=== PATIENT | male | born 1970 | race Hispanic/Latino ===

== ENCOUNTER 2016-11-02 10:24 | Emergency (ER) | payer OTHER ==
[~2016-11-02] VITALS: Ht 167.6 cm; Wt 75.0 kg
[~2016-11-02 10:24] MED LIST: ACET-171 PO; OXYC5TAB72 PO
[2016-11-02 10:28] VITALS: BP 143/87; PULSE 101; RESP 22; O2SAT 98
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
[2016-11-02] MEDS ORDERED: 0.9% Sodium Chloride 1,000 ML IV ONE (10:52)
[2016-11-02] MEDS ORDERED: HYDROmorphone 1 mg/mL Inj IVPUSH PRN (10:55)
[2016-11-02] MEDS ORDERED: Ondansetron 2 mg/mL 2 mL Inj IVPUSH PRN (10:55)
[2016-11-02] MEDS ORDERED: Pantoprazole 4 mg/mL 10 mL Inj IVPUSH ONE (10:55)
[2016-11-02] MEDS ORDERED: Acetaminophen IV 1,000 MG in IV Premix 1 EACH IV ONE (11:10)
[2016-11-02 11:16] LABS: BASOPHILS % (AUTO) 1.2 % (0-3); EOSINOPHILS % (AUTO) 8.3 % (0-5); MONOCYTES % (AUTO) 10.6 % (4-12); Mean Corpuscular Hemoglobin 33.3 pg (27.0-35.0); Mean Corpuscular Volume 93.3 fL (81-100); NEUTROPHILS % (AUTO) 48.8 % (40-74); Platelet Count 168 bil/L (150-400)
--- NOTE | 2016-11-02 11:28 | DRSVH ---
PROCEDURE: X-RAY ACUTE ABDOMINAL SERIES ([id number]) INDICATIONS: abdominal pain TECHNIQUE: One view chest and two views of the abdomen were acquired. COMPARISON: None. FINDINGS: Surgical changes and devices: There are surgical clips in the gallbladder fossa. Chest: Lungs are clear. Heart size is normal. No pleural effusions. No pneumoperitoneum. Abdomen: Bowel gas pattern is overall normal. There is a large amount of stool in the colon. No west picious calcifications. Visualized solid organ contours appear normal. Bones: No suspicious bony lesions. IMPRESSION: No acute cardiopulmonary findings. No acute intra-abdominal findings. Large colonic stool burden. Dictated by: Molly Yancey M.D. on 11/02/2016 at 11:23 Approved by: Molly Yancey M.D. on 11/02/2016 at 11:27
[2016-11-02 13:37] LABS: APPEARANCE,URINE CLEAR (CLEAR,HAZY); COLOR,URINE YELLOW (YELLOW)
[2016-11-02 13:38] LABS: OCCULT BLOOD,URINE NEGATIVE (NEGATIVE); UROBILINOGEN,URINE NORMAL (NORMAL)
[2016-11-02 14:13] VITALS: BP 125/78; PULSE 80; RESP 16; O2SAT 96
[2016-11-02] MEDS ORDERED: PEG4000S2 PO (14:53)
[2016-11-02] MEDS ORDERED: OXYC1TAB24 PO (14:53)
[2016-11-02] MEDS ORDERED: HYOS0.1281 SL (14:53)
[2016-11-02] MEDS ORDERED: oxyCODONE-Acetamin 5-325 mg Tablet PO ONE (15:25)
[2016-11-02 15:31] VITALS: BP 122/89; PULSE 84; RESP 16; O2SAT 98
== END 2016-11-02 15:32 | disposition home or self-care (01) ==
LOC: SED 10:24
DX: R10.9 Unspecified abdominal pain (principal); R11.2 Nausea with vomiting, unspecified; R30.0 Dysuria; R05 Cough; R09.81 Nasal congestion; E11.9 Type 2 diabetes mellitus without complications; I25.2 Old myocardial infarction; J45.909 Unspecified asthma, uncomplicated; Z98.890 Other specified postprocedural states; Z86.73 Personal history of transient ischemic attack (TIA), and cerebral infarction without residual deficits; Z87.891 Personal history of nicotine dependence; Z88.0 Allergy status to penicillin
CPT/HCPCS: 36415; 74022; 80053; 81000; 83605; 83690; 83735; 85025; 96361; 96374; 96375; 99285; J0131; J1170; J2060; J2405; J7030

== ENCOUNTER 2016-11-06 15:17 | Emergency (ER) | payer OTHER ==
[~2016-11-06] VITALS: Ht 167.6 cm; Wt 75.0 kg
[~2016-11-06 15:17] MED LIST changes: +HYOS0.1281 SL; +OXYC1TAB24 PO; +PEG4000S2 PO
[2016-11-06 15:35] VITALS: BP 127/85; PULSE 100; RESP 20; O2SAT 97
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
[2016-11-06 17:00] LABS: BASOPHILS % (AUTO) 0.8 % (0-3); EOSINOPHILS % (AUTO) 7.9 % (0-5); MONOCYTES % (AUTO) 12.4 % (4-12); Mean Corpuscular Hemoglobin 33.3 pg (27.0-35.0); Mean Corpuscular Volume 93.3 fL (81-100); NEUTROPHILS % (AUTO) 48.5 % (40-74); Platelet Count 183 bil/L (150-400)
[2016-11-06] MEDS ORDERED: 0.9% Sodium Chloride 1,000 ML IV ONE (17:05)
[2016-11-06] MEDS: HYDROmorphone 1 mg/mL Inj IVPUSH PRN ×2 (17:29→20:25)
[2016-11-06] MEDS: Ondansetron 2 mg/mL 2 mL Inj IVPUSH PRN ×2 (17:29→23:11)
[2016-11-06 17:31] LABS: Magnesium 2.1 mg/dL (1.6-2.6)
--- NOTE | 2016-11-06 19:13 | DRSVH ---
PROCEDURE: CT ABDOMEN AND PELVIS WITH CONTRAST ([id number]) INDICATIONS: abd pain- diffuse R>L TECHNIQUE: After the administration of intravenous contrast, 5 mm thick sections acquired from the diaphragm to the symphysis. 5 mm coronal and sagittal reformats were acquired. For radiation dose reduction, the following was used: automated exposure control, adjustment of mA and/or kV according to patient siz e. COMPARISON: None. FINDINGS: Image quality: Excellent. ABDOMEN: Lung bases: There is suggestion of a minimal right infero-medial infiltrate in the lung. Heart size i s normal. Solid organs: The liver is somewhat nodular on its surface although normal in size. Spleen is normal in size and position.. Gallbladder is not to have been removed. Vascular clips are present.. Biliar y system is non dilated. Pancreas enhances normally. No adrenal nodules. Kidneys demonstrate lizzette l size and enhancement, without hydronephrosis. Peritoneum and bowel: Bowel loops demonstrate normal wall thickness and caliber. There is a small to moderate ascites present. The appendix is thought to be within normal limits although there is a sma ll appendicolith at the apex of the appendix. Nodes and vessels: No retroperitoneal or mesenteric adenopathy by size criteria. Aorta and inferior vena cava are normal in size. Miscellaneous: No ventral hernias. PELVIS: Genitourinary: Bladder wall thickness is normal. Miscellaneous: No inguinal hernias or adenopathy. Bones: No suspicious bony lesions. No vertebral body compression fractures. IMPRESSION: Changes of cirrhosis in the liver. Previous recent cholecystectomy. Small to moderate amount of ascites which is new since the CT KUB of 10/08/16. Bowel gas pattern is considered normal. Appendix is considered normal with a small appendicolith at i ts apex. There is a small pneumonia or infiltrate at the right lung base. Dictated by: Antony King M.D. on 11/06/2016 at 19:01 Approved by: Antony King M.D. on 11/06/2016 at 19:12
[2016-11-06 19:56] VITALS: BP 131/71; PULSE 80; RESP 18; O2SAT 97
[2016-11-06] MEDS ORDERED: _oxyCODONE/APAP 5-325 mg Tablet PO PRN (22:20)
[2016-11-06] MEDS ORDERED: Promethazine Inj 25 MG in Dextrose 5%-Pha MIX 50 ML IV ONE (22:55)
[2016-11-06] MEDS ORDERED: Haloperidol 5 mg/mL Inj IVPUSH ONE (23:35)
[2016-11-06 23:45] VITALS: BP 119/59; PULSE 94; RESP 17; O2SAT 95
[2016-11-07] MEDS ORDERED: PROM25SU47 RECTAL (00:41)
[2016-11-07] MEDS ORDERED: OXYC-407 PO (00:41)
[2016-11-07 00:50] VITALS: BP 109/68; PULSE 81; RESP 16; O2SAT 100
--- NOTE | 2016-11-07 08:40 | DRSVH ---
PROCEDURE: US ABDOMEN, LIMITED ([id number]) INDICATIONS: ascites and abdominal pain TECHNIQUE: Real-time focused scanning was performed of the abdomen, with image documentation. COMPARISON: [facility], CT, CT ABD PELVIS W CON, 11/06/2016, 18:04. FINDINGS: Small amount of intraperitoneal fluid is present. Paracentesis was attempted by Dr. King which was not successful. IMPRESSION: Small amount of ascites is present and attempted paracentesis by Dr. King was not succes sful. Dictated by: Josue Barcenas [facility] Interpreted: Khushbu Ward MD on 11/07/2016 at 8:38 Transcribed by: TERRI on 11/07/2016 at 8:39 Approved by: Khushbu Ward MD, PhD on 11/07/2016 at 16:43
== END 2016-11-07 00:51 | disposition home or self-care (01) ==
LOC: SED 15:17
DX: R10.9 Unspecified abdominal pain (principal); R11.2 Nausea with vomiting, unspecified; R50.9 Fever, unspecified; E11.9 Type 2 diabetes mellitus without complications; F12.90 Cannabis use, unspecified, uncomplicated; F31.9 Bipolar disorder, unspecified; J45.909 Unspecified asthma, uncomplicated; B19.20 Unspecified viral hepatitis C without hepatic coma; R18.8 Other ascites; Z90.49 Acquired absence of other specified parts of digestive tract; Z87.891 Personal history of nicotine dependence; Z88.0 Allergy status to penicillin
CPT/HCPCS: 36415; 74177; 76705; 80053; 83690; 83735; 85025; 96361; 96374; 96375; 96376; 99285; J1170; J1200; J1630; J2060; J2405; J7030; Q9967

== ENCOUNTER 2016-11-10 17:50 | Emergency (ER) | payer OTHER ==
[~2016-11-10] VITALS: Ht 167.6 cm; Wt 75.0 kg
[~2016-11-10 17:50] MED LIST changes: +OXYC-407 PO; +PROM25SU47 RECTAL
[2016-11-10 17:54] VITALS: BP 132/85; PULSE 82; RESP 22; O2SAT 97
[2016-11-10] MEDS ORDERED: oxyCODONE-Acetamin 10-325 mg Tablet PO ONE (18:55)
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
--- NOTE | 2016-11-10 19:34 | DRSVH ---
PROCEDURE: X-RAY CHEST, TWO VIEWS ([id number]) INDICATIONS: cough, fever TECHNIQUE: 2 views of the chest were acquired. COMPARISON: [facility], RG, CHEST 1VW (PORTABLE), 05/28[facility]2006[facility], 10/08/2016, 20:51. [facility], CR, CHEST 2VW, 03/08/2011, 21:04. [facility], CT, CT ABD PELVIS W CON, 11/06/2016, 18:04. FINDINGS: Surgical changes and devices: None. Lungs and pleura: There is right hemidiaphragm elevation. Right medial basilar opacity may be infilt rate or atelectasis. No pleural effusions or pneumothorax. Mediastinum: Mediastinal contours are normal. Heart size is normal. Bones and chest wall: No suspicious bony abnormalities. Soft tissues appear unremarkable. IMPRESSION: Right hemidiaphragm elevation. Right medial basilar opacity may be infiltrate or atelecta sis. Dictated by: Leopoldo Berry M.D. on 11/10/2016 at 19:29 Approved by: Leopoldo Berry M.D. on 11/10/2016 at 19:32
[2016-11-10 19:36] LABS: BASOPHILS % (AUTO) 0.6 % (0-3); EOSINOPHILS % (AUTO) 9.4 % (0-5); MONOCYTES % (AUTO) 10.8 % (4-12); Mean Corpuscular Hemoglobin 33.4 pg (27.0-35.0); Mean Corpuscular Volume 92.8 fL (81-100); NEUTROPHILS % (AUTO) 46.9 % (40-74); Platelet Count 226 bil/L (150-400)
[2016-11-10 19:40] VITALS: BP 128/84; PULSE 80; RESP 20; O2SAT 98
[2016-11-10] MEDS ORDERED: levoFLOXacin 500 mg Tablet PO ONE (19:50)
[2016-11-10] MEDS ORDERED: levoFLOXacin 250 mg Tablet PO ONE (20:25)
[2016-11-10] MEDS ORDERED: _oxyCODONE/APAP 5-325 mg Tablet PO PRN (21:05)
[2016-11-11 01:46] VITALS: BP 130/74; PULSE 84; RESP 18; O2SAT 99
== END 2016-11-11 07:06 | disposition home or self-care (01) ==
LOC: SED 17:50
DX: J18.9 Pneumonia, unspecified organism (principal); R51 Headache; G47.30 Sleep apnea, unspecified; J45.909 Unspecified asthma, uncomplicated; E11.9 Type 2 diabetes mellitus without complications; F31.9 Bipolar disorder, unspecified; Z87.891 Personal history of nicotine dependence; Z88.0 Allergy status to penicillin; Z91.018 Allergy to other foods

== ENCOUNTER 2016-11-23 21:12 | Emergency (ER) | payer OTHER ==
[~2016-11-23] VITALS: Ht 167.6 cm; Wt 121.4 kg
[2016-11-23 21:20] VITALS: BP 142/81; PULSE 96; RESP 18; O2SAT 98
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
[2016-11-23] MEDS ORDERED: 0.9% Sodium Chloride 1,000 ML IV ONE (21:53)
[2016-11-23] MEDS ORDERED: Ondansetron 2 mg/mL 2 mL Inj IVPUSH ONE (21:55)
[2016-11-23] MEDS ORDERED: HYDROmorphone 0.5 mg/0.5 mL iSecure Syringe IVPUSH ONE (22:25)
[2016-11-23 22:28] LABS: BASOPHILS % (AUTO) 0.7 % (0-3); EOSINOPHILS % (AUTO) 12.4 % (0-5); MONOCYTES % (AUTO) 9.9 % (4-12); Mean Corpuscular Hemoglobin 33.6 pg (27.0-35.0); Mean Corpuscular Volume 95.7 fL (81-100); NEUTROPHILS % (AUTO) 46.1 % (40-74); Platelet Count 156 bil/L (150-400)
[2016-11-23 22:45] LABS: Magnesium 1.9 mg/dL (1.6-2.6)
[2016-11-24 00:02] LABS: APPEARANCE,URINE CLEAR (CLEAR,HAZY); COLOR,URINE DARK YELLOW (YELLOW); OCCULT BLOOD,URINE NEGATIVE (NEGATIVE); UROBILINOGEN,URINE NORMAL (NORMAL)
[2016-11-24] MEDS ORDERED: HYOS0.1217 PO (00:14)
[2016-11-24 00:29] VITALS: BP 138/82; PULSE 98; RESP 18; O2SAT 97
--- NOTE | 2016-11-24 08:33 | DRSVH ---
PROCEDURE: CT KUB ([id number]) INDICATIONS: left testicle and flank pain TECHNIQUE: Noncontrast 5 mm thick sections acquired from the diaphragms to the symphysis. 5 mm thick coronal an d sagittal reformats were then performed. For radiation dose reduction, the following was used: aut omated exposure control, adjustment of mA and/or kV according to patient size. COMPARISON: [facility], CT, CT KUB, 10/08/2016, 20:51. FINDINGS: Image quality: Excellent. Lung bases: Mild right basilar infiltrate or atelectasis. Heart size is normal. Urinary system: Both kidneys are normal in size. No kidney stones. No hydronephrosis or perinephri c fat stranding. Both ureters appear non-dilated throughout their expected courses. Bladder wall th ickness is normal; no calcified bladder stones. Other solid organs: Fever has a nodular contour consistent with cirrhosis. Spleen is not enlarged me asuring 14 cm. Gallbladder is surgically absent. Pancreas is normal in contours. No adrenal nodules . Peritoneum and bowel: Unenhanced bowel loops demonstrate normal wall thickness and caliber. A small amount of free fluid is present. No free air. Nodes and vessels: No retroperitoneal or mesenteric adenopathy by size criteria. Aorta and inferior vena cava are normal in caliber. Abdominal wall: No ventral hernias. Pelvis: There is a small amount of free pelvic fluid. No inguinal adenopathy. A 2 cm round, masslik e density is noted in the left inguinal canal with CT attenuation of 14 HU. There is hydrocele in scr otum. Bones: No suspicious bony lesions. No vertebral body compression fractures. IMPRESSION: 1. No definitive CT findings to explain left testicular pain/flank pain. 2. A 2 cm rounded masslike density in the left inguinal canal with CT attenuation suggesting a cyst. Ultrasound may be helpful for further evaluation. 3. Cirrhotic liver. 4. Mild splenomegaly suggesting portal hypertension. 5. A small amount of ascites. 6. Hydroceles in scrotum. 7. Mild right basilar infiltrate or atelectasis. No significant discrepancy with the third shift lieutenant radiology preliminary report. Dictated by: Leopoldo Berry M.D. on 11/24/2016 at 7:53 Approved by: Leopoldo Berry M.D. on 11/24/2016 at 8:31
== END 2016-11-24 00:31 | disposition home or self-care (01) ==
LOC: SED 21:12
DX: R10.9 Unspecified abdominal pain (principal); N50.812 Left testicular pain; J45.909 Unspecified asthma, uncomplicated; E11.9 Type 2 diabetes mellitus without complications; Z87.891 Personal history of nicotine dependence; Z88.6 Allergy status to analgesic agent; Z88.5 Allergy status to narcotic agent; Z88.0 Allergy status to penicillin
CPT/HCPCS: 36415; 74176; 80053; 81000; 83690; 83735; 85025; 96361; 96374; 96375; 99285; J1170; J2405; J7030

== ENCOUNTER 2016-11-27 12:15 | Emergency (ER) | payer OTHER ==
[~2016-11-27] VITALS: Ht 167.6 cm; Wt 75.9 kg
[~2016-11-27 12:15] MED LIST changes: +HYOS0.1217 PO
[2016-11-27 12:17] VITALS: BP 145/91; PULSE 95; RESP 18; O2SAT 98
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
[2016-11-27 13:10] LABS: BASOPHILS % (AUTO) 0.5 % (0-3); EOSINOPHILS % (AUTO) 6.4 % (0-5); MONOCYTES % (AUTO) 9.8 % (4-12); Mean Corpuscular Hemoglobin 33.3 pg (27.0-35.0); Mean Corpuscular Volume 94.5 fL (81-100); NEUTROPHILS % (AUTO) 50.3 % (40-74); Platelet Count 153 bil/L (150-400)
[2016-11-27 14:37] VITALS: BP 152/77; PULSE 111; RESP 22; O2SAT 97
--- NOTE | 2016-11-27 14:55 | DRSVH ---
PROCEDURE: US HERNIA INGUINAL INDICATIONS: eval for incarcerated inguinal hernia TECHNIQUE: Real-time focused scanning was performed of the inguinal region, with image documentation. COMPARISON: [facility], [place], 11/06/2016, 21:57. FINDINGS: No definite hernia is visualized sonographically. There is a avascular simple cyst within the left temporal condyle corresponding to the palpable abnormality measuring 2.1 x 3.5 cm. IMPRESSION: Avascular, simple cystic structure within the left inguinal canal measuring up to 3.5 cm of unclear etiology. If indicated CT could be performed for further assessment as no definite hernia tion of fat or bowel is seen by ultrasound. Dr. Low given results at 1430 hrs. 11/27/2016. Dictated by: Josue NORIEGA Interpreted: Lise Schmid MD on 11/27/2016 at 14:53 Transcribed by: JESSE on 11/27/2016 at 14:54 Approved by: Lise Schmid M.D. on 11/28/2016 at 16:17
[2016-11-27] MEDS ORDERED: OXYC-474 PO (15:22)
[2016-11-27 15:26] VITALS: BP 152/77; PULSE 91; RESP 20; O2SAT 98
== END 2016-11-27 15:23 | disposition home or self-care (01) ==
LOC: SED 12:15
DX: R10.32 Left lower quadrant pain (principal); E11.9 Type 2 diabetes mellitus without complications; J45.909 Unspecified asthma, uncomplicated; Z87.891 Personal history of nicotine dependence; Z88.6 Allergy status to analgesic agent; Z88.5 Allergy status to narcotic agent; Z88.0 Allergy status to penicillin

== ENCOUNTER 2016-12-09 15:58 | Emergency (ER) | payer OTHER ==
[~2016-12-09] VITALS: Ht 167.6 cm; Wt 75.9 kg
[~2016-12-09 15:58] MED LIST changes: +OXYC-474 PO
[2016-12-09 16:13] VITALS: BP 140/96; PULSE 82; RESP 16; O2SAT 97
[2016-12-09 17:55] LABS: BASOPHILS % (AUTO) 0.6 % (0-3); EOSINOPHILS % (AUTO) 4.4 % (0-5); MONOCYTES % (AUTO) 10.4 % (4-12); Mean Corpuscular Hemoglobin 33.6 pg (27.0-35.0); Mean Corpuscular Volume 94.1 fL (81-100); NEUTROPHILS % (AUTO) 50.5 % (40-74); Platelet Count 163 bil/L (150-400)
[2016-12-09 18:15] LABS: Magnesium 2.1 mg/dL (1.6-2.6)
[2016-12-09] MEDS ORDERED: Ondansetron 2 mg/mL 2 mL Inj ONE (19:01)
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
[2016-12-09] MEDS ORDERED: HYDROmorphone 1 mg/mL Inj IVPUSH PRN (19:35)
--- NOTE | 2016-12-09 20:16 | DRSVH ---
PROCEDURE: CT ABDOMEN AND PELVIS WITH CONTRAST ([id number]) INDICATIONS: bilat tender inguinal hernia TECHNIQUE: After the administration of intravenous contrast, 5 mm thick sections acquired from the diaphragm to the symphysis. 5 mm coronal and sagittal reformats were acquired. For radiation dose reduction, the following was used: automated exposure control, adjustment of mA and/or kV according to patient siz e. COMPARISON: None. FINDINGS: Image quality: Excellent. ABDOMEN: Lung bases: Mild atelectasis is present at the medial right lung base. No pleural effusion or pneumot horax. Solid organs: Liver demonstrates diffuse surface nodularity consistent with cirrhotic transformation. The portal vein is patent. The spleen measures 14.5 cm in length. There is a small amount of hepatos plenic free fluid. Gallbladder is surgically absent. Biliary system is non dilated. Pancreas enhanc es normally. No adrenal nodules. Kidneys demonstrate normal size and enhancement, without hydroneph rosis. Peritoneum and bowel: Bowel loops demonstrate normal wall thickness and caliber. The appendix is th in walled and gas filled. There is a large amount of low-density free fluid within the pelvis. Nodes and vessels: No retroperitoneal or mesenteric adenopathy by size criteria. Aorta and inferior vena cava are normal in size. Miscellaneous: No ventral hernias. PELVIS: Genitourinary: Bladder wall thickness is normal. Miscellaneous: No inguinal adenopathy. Small bilateral fat and fluid containing inguinal hernias. Bones: No suspicious bony lesions. No vertebral body compression fractures. IMPRESSION: 1. No acute intra-abdominal findings. Normal appendix. 2. Hepatic cirrhosis with stigmata of portal hypertension including splenomegaly and ascites. 3. Small bilateral fat fluid containing inguinal hernias. No findings to suggest bowel herniation. Dictated by: Molly Yancey M.D. on 12/09/2016 at 19:59 Approved by: Molly Yancey M.D. on 12/09/2016 at 20:14
[2016-12-09] MEDS ORDERED: OMEP20CA11 PO (21:56)
[2016-12-09] MEDS ORDERED: DOCU-41 PO (21:56)
[2016-12-09] MEDS ORDERED: ONDA8TAB10 PO (21:57)
[2016-12-09] MEDS ORDERED: ALBU8.5H2 INHALATION (21:58)
[2016-12-09] MEDS ORDERED: oxyCODONE-Acetamin 5-325 mg Tablet PO ONE (22:00)
[2016-12-09] MEDS ORDERED: OXYC1TAB24 PO (22:01)
[2016-12-09 22:14] VITALS: BP 148/89; PULSE 80; RESP 16; O2SAT 98
[2016-12-09 22:17] VITALS: BP 148/89; PULSE 80; RESP 16; O2SAT 98
== END 2016-12-09 22:19 | disposition home or self-care (01) ==
LOC: SED 15:58
DX: K40.20 Bilateral inguinal hernia, without obstruction or gangrene, not specified as recurrent (principal); K74.60 Unspecified cirrhosis of liver; F15.10 Other stimulant abuse, uncomplicated; J45.909 Unspecified asthma, uncomplicated; E11.9 Type 2 diabetes mellitus without complications; F31.9 Bipolar disorder, unspecified; Z87.828 Personal history of other (healed) physical injury and trauma; Z87.891 Personal history of nicotine dependence; Z88.0 Allergy status to penicillin; Z88.5 Allergy status to narcotic agent; Z91.018 Allergy to other foods
CPT/HCPCS: 36415; 74177; 80053; 81002; 82948; 83690; 83735; 85025; 96374; 96375; 99285; J1170; J2405; Q9967

== ENCOUNTER 2016-12-14 17:39 | Emergency (ER) | payer OTHER ==
[~2016-12-14] VITALS: Ht 167.6 cm; Wt 75.9 kg
[~2016-12-14 17:39] MED LIST changes: +ALBU8.5H2 INHALATION; +DOCU-41 PO; +OMEP20CA11 PO; +ONDA8TAB10 PO
[2016-12-14 17:59] VITALS: BP 115/73; PULSE 74; RESP 16; O2SAT 98
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
== END 2016-12-14 18:51 | disposition home or self-care (01) ==
LOC: SED 17:39
DX: K40.21 Bilateral inguinal hernia, without obstruction or gangrene, recurrent (principal); E11.9 Type 2 diabetes mellitus without complications; J45.909 Unspecified asthma, uncomplicated; Z87.891 Personal history of nicotine dependence; Z88.0 Allergy status to penicillin; Z88.5 Allergy status to narcotic agent; Z88.6 Allergy status to analgesic agent; Z91.018 Allergy to other foods

== ENCOUNTER 2017-01-01 13:23 | Emergency (ER) | payer OTHER ==
[~2017-01-01] VITALS: Ht 167.6 cm; Wt 75.9 kg
[2017-01-01 13:36] VITALS: BP 156/92; PULSE 93; RESP 18; O2SAT 99
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
[2017-01-01 15:41] VITALS: BP 156/92; PULSE 93; RESP 18; O2SAT 99
== END 2017-01-01 15:42 | disposition home or self-care (01) ==
LOC: SED 13:23
DX: G89.4 Chronic pain syndrome (principal); J45.909 Unspecified asthma, uncomplicated; E11.9 Type 2 diabetes mellitus without complications; Z87.828 Personal history of other (healed) physical injury and trauma; Z87.891 Personal history of nicotine dependence; Z88.5 Allergy status to narcotic agent; Z88.6 Allergy status to analgesic agent; Z88.0 Allergy status to penicillin; Z91.018 Allergy to other foods

== ENCOUNTER 2017-01-13 14:51 | Emergency (ER) | payer OTHER ==
[~2017-01-13] VITALS: Ht 167.6 cm; Wt 75.9 kg
[2017-01-13] MEDS ORDERED: MethylprednisoLONE Sodium Succinate 62.5 mg/mL 2 mL Inj ONE (14:52)
[2017-01-13 14:55] VITALS: BP 116/75; PULSE 98; RESP 22; O2SAT 98
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
[2017-01-13] MEDS ORDERED: 0.9% Sodium Chloride 1,000 ML IV ONE (15:05)
[2017-01-13] MEDS ORDERED: MethylprednisoLONE Sodium Succinate 62.5 mg/mL 2 mL Inj IVPUSH ONE (15:05)
[2017-01-13] MEDS ORDERED: Famotidine 10 mg/mL 2 mL Inj IVPUSH ONE (15:05)
[2017-01-13 16:10] VITALS: BP 114/76; PULSE 74; RESP 26; O2SAT 96
[2017-01-13] MEDS ORDERED: PRE20 PO (16:39)
[2017-01-13] MEDS ORDERED: CETI10CA PO (16:39)
[2017-01-13 18:57] VITALS: BP 114/62; PULSE 69; RESP 29; O2SAT 96
== END 2017-01-13 18:30 | disposition home or self-care (01) ==
LOC: SED 14:51
DX: T78.1XXA Other adverse food reactions, not elsewhere classified, initial encounter (principal); Y93.89 Activity, other specified; Y92.89 Other specified places as the place of occurrence of the external cause; Y99.8 Other external cause status; E11.9 Type 2 diabetes mellitus without complications; J45.909 Unspecified asthma, uncomplicated; F31.9 Bipolar disorder, unspecified; Z87.891 Personal history of nicotine dependence; Z88.0 Allergy status to penicillin; Z88.5 Allergy status to narcotic agent; Z88.8 Allergy status to other drugs, medicaments and biological substances; Z91.02 Food additives allergy status
CPT/HCPCS: 93005; 96361; 96374; 96375; 99284; J1200; J2930; J7030

== ENCOUNTER 2017-02-28 12:20 | Emergency (ER) | payer OTHER ==
[~2017-02-28] VITALS: Ht 167.6 cm; Wt 72.7 kg
[~2017-02-28 12:20] MED LIST changes: +CETI10CA PO; -HYOS0.1217 PO; -HYOS0.1281 SL; -OMEP20CA11 PO; -OXYC-407 PO; -OXYC-474 PO; -OXYC1TAB24 PO; -OXYC5TAB72 PO; -PEG4000S2 PO; +PRE20 PO; -PROM25SU47 RECTAL
[2017-02-28 12:23] VITALS: BP 155/93; PULSE 103; RESP 16; O2SAT 98
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
[2017-02-28] MEDS ORDERED: OXYC1TAB24 PO (12:41)
== END 2017-02-28 13:07 | disposition home or self-care (01) ==
LOC: SED 12:20
DX: S46.111A Strain of muscle, fascia and tendon of long head of biceps, right arm, initial encounter (principal); X50.1XXA Overexertion from prolonged static or awkward postures, initial encounter; Y93.B9 Activity, other involving muscle strengthening exercises; Y92.89 Other specified places as the place of occurrence of the external cause; Y99.8 Other external cause status; R53.1 Weakness; J45.909 Unspecified asthma, uncomplicated; E11.9 Type 2 diabetes mellitus without complications; Z87.891 Personal history of nicotine dependence; Z88.0 Allergy status to penicillin; Z88.5 Allergy status to narcotic agent; Z88.8 Allergy status to other drugs, medicaments and biological substances; Z91.02 Food additives allergy status

== ENCOUNTER 2017-03-05 11:43 | Emergency (ER) | payer OTHER ==
[~2017-03-05] VITALS: Ht 167.6 cm; Wt 73.6 kg
[~2017-03-05 11:43] MED LIST changes: +OXYC1TAB24 PO
[2017-03-05 11:48] VITALS: BP 138/90; PULSE 102; RESP 15; O2SAT 97
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
[2017-03-05] MEDS ORDERED: OXYC1TAB24 PO (13:10)
[2017-03-05 13:30] VITALS: BP 139/88; PULSE 86; RESP 16; O2SAT 99
[2017-03-05 13:32] VITALS: BP 139/88; PULSE 86; RESP 16; O2SAT 99
== END 2017-03-05 13:34 | disposition home or self-care (01) ==
LOC: SED 11:43
DX: S46.211A Strain of muscle, fascia and tendon of other parts of biceps, right arm, initial encounter (principal); X50.3XXA Overexertion from repetitive movements, initial encounter; Y92.009 Unspecified place in unspecified non-institutional (private) residence as the place of occurrence of the external cause; Y93.B9 Activity, other involving muscle strengthening exercises; Y99.8 Other external cause status; F31.9 Bipolar disorder, unspecified; J45.909 Unspecified asthma, uncomplicated; E11.9 Type 2 diabetes mellitus without complications; Z76.0 Encounter for issue of repeat prescription; Z87.891 Personal history of nicotine dependence; Z88.5 Allergy status to narcotic agent; Z88.6 Allergy status to analgesic agent; Z88.0 Allergy status to penicillin

== ENCOUNTER 2017-03-16 09:28 | Emergency (ER) | payer OTHER ==
[~2017-03-16] VITALS: Ht 167.6 cm; Wt 75.0 kg
[2017-03-16 09:32] VITALS: BP 133/91; PULSE 93; RESP 12; O2SAT 98
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
== END 2017-03-16 11:30 | disposition home or self-care (01) ==
LOC: SED 09:28
DX: S46.111A Strain of muscle, fascia and tendon of long head of biceps, right arm, initial encounter (principal); X58.XXXA Exposure to other specified factors, initial encounter; Y93.9 Activity, unspecified; Y92.9 Unspecified place or not applicable; Y99.9 Unspecified external cause status; F31.9 Bipolar disorder, unspecified; J45.909 Unspecified asthma, uncomplicated; E11.9 Type 2 diabetes mellitus without complications; Z87.891 Personal history of nicotine dependence; Z88.5 Allergy status to narcotic agent; Z88.6 Allergy status to analgesic agent; Z91.018 Allergy to other foods; Z88.0 Allergy status to penicillin